=== PATIENT | female | born 1970 | race Caucasian/White ===

== ENCOUNTER 2020-12-22 07:20 | Emergency (ER) | payer OTHER ==
[~2020-12-22] VITALS: Ht 165.1 cm; Wt 74.8 kg
[2020-12-22 08:51] LABS: BASOPHIL 0.2 % (0-2); EOSINOPHIL 0.3 % (0-5); HCT 42.7 % (37.0-47.0); HGB 13.9 g/dl (12.5-16.0); LYMPHOCYTE 17.1 % (15-48); MCH 30.1 pg (25.0-31.0); MCHC 32.6 g/dL (32.0-36.0); MCV 92.4 fL (78.0-100.0); MONOCYTE 7.2 % (0-12); MPV 10.1 fL (6.0-9.5); NEUTROPHIL 74.9 % (41-80); NRBC 0; PLT 231 K/uL (150-400); RBC 4.62 M/uL (4.20-5.40); RDW 13.9 % (11.5-14.0); WBC 6.2 K/uL (4.0-10.5)
[2020-12-22 09:20] LABS: PRO-BNP 20 pg/mL (<125)
[2020-12-22 09:22] LABS: ALBUMIN 3.6 g/dL (3.4-5.0); BILIRUBIN - TOTAL 0.4 mg/dL (0.2-1.0); BUN/CREAT RATIO (CALC) 9.9 RATIO; C-REACTIVE PROTEIN 0.4 mg/dL (<=0.90); CREATININE 0.91 mg/dL (0.51-0.95); GLOBULIN (CALCULATION) 4.2 g/dL; MAGNESIUM 2.2 mg/dL (1.8-2.4); POTASSIUM 3.9 mmol/L (3.5-5.1); TOTAL PROTEIN 7.8 g/dL (6.4-8.2)
[2020-12-22 09:28] LABS: LACTIC ACID 2.3 mmol/L (0.4-1.9)
[2020-12-22 10:07] LABS: BILIRUBIN NEGATIVE (NEGATIVE); BLOOD NEGATIVE Ery/uL (NEGATIVE); CLARITY HAZY (CLEAR); COLOR YELLOW (YELLOW); GLUCOSE (U) NORMAL (NORMAL); LEUKOCYTES NEGATIVE Leu/uL (NEGATIVE); NITRITE NEGATIVE (NEGATIVE); PROTEIN NEGATIVE (NEGATIVE)
[2020-12-22] MEDS ORDERED: ONDANSETRON ODT4 MG PO (10:27)
== END 2020-12-22 10:47 | disposition home or self-care (01) ==
LOC: FER 07:20
PROVIDERS: Emergency Medicine
DX: R55 Syncope and collapse (principal); U07.1 COVID-19; R07.9 Chest pain, unspecified; I21.4 Non-ST elevation (NSTEMI) myocardial infarction; Z88.0 Allergy status to penicillin; Z88.1 Allergy status to other antibiotic agents; Z91.012 Allergy to eggs; Z91.013 Allergy to seafood
CPT/HCPCS: 36415; 70450; 80053; 81003; 82728; 83605; 83735; 83880; 84145; 84484; 85025; 85379; 86140; 93005; J7030